=== PATIENT | female | born 1990 | race African-American/Black ===

== ENCOUNTER 2019-10-02 15:57 | Emergency (ER) | payer SELFPAY ==
[~2019-10-02] VITALS: Ht 162.6 cm; Wt 56.7 kg
[2019-10-02 16:33] VITALS: BP 109/61
[2019-10-02] MEDS ORDERED: NAPROXEN 500 MG TABLET PO STA (16:42)
[2019-10-02] MEDS ORDERED: HYDROcodone/APAP 5/325MG 1 TAB TABLET PO ONE (16:45)
--- NOTE | 2019-10-02 17:10 | RAD ---
Exam: Right ankle 3 views INDICATION: Trauma TECHNIQUE: Frontal, lateral and oblique views of the right ankle Comparisons: None FINDINGS: Obliquely oriented fracture through the distal right fibula. There is overlying soft tissue swelling over the lateral malleolus. Mild medial clear space widening is also noted. No other fractures are seen. Soft tissues are otherwise unremarkable. Bone mineralization is normal. IMPRESSION: Obliquely oriented fracture through the distal right fibula with mild medial clear space widening. Electronically signed by: Coleen Tovar MD (10/02/2019 5:07 PM) [facility]
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
[2019-10-02] MEDS ORDERED: HYDR-3164 PO (18:25)
== END 2019-10-02 18:30 | disposition home or self-care (01) ==
LOC: ER 15:57 → EDSEX 15:57 → ER 18:30
DX: S82.831A Other fracture of upper and lower end of right fibula, initial encounter for closed fracture (principal); X50.9XXA Other and unspecified overexertion or strenuous movements or postures, initial encounter; Y93.01 Activity, walking, marching and hiking; Y92.89 Other specified places as the place of occurrence of the external cause; Y99.8 Other external cause status
CPT/HCPCS: 29515; 73610; 99284

== ENCOUNTER 2019-10-18 19:21 | Emergency (ER) | payer SELFPAY ==
[~2019-10-18] VITALS: Ht 162.6 cm; Wt 56.7 kg
[~2019-10-18 19:21] MED LIST: HYDR-3164 PO
[2019-10-18 20:07] VITALS: BP 109/61
--- NOTE | 2019-10-18 23:12 | PHYS DOC ---
Past Medical History Past Medical History: No Pertinent History (CANDACE FARMER APRN) Alcohol Use: None Drug Use: None (CANDACE FARMER APRN) Attending Signature I have participated in the care of this patient and I have reviewed and agree with all pertinent clinical information above including history, exam, and recommendations. (ESME MILLER MD) Adult General Chief Complaint Chief Complaint: ANKLE PROBLEM HPI HPI Patient is a 29 year old female who prefers to use male pronouns as pt is transgender that is accompanied by a friend, who presents to the ER with request for a note to return to work. Pt states he was seen here 2 weeks ago and dx with a fracture of the left ankle. Pt states he was unable to follow up with orthopedics because he did not have $300 to be seen. Pt states he is now able to bear weight on the affected extremity and needs a note saying he can go back to work. Pt states the pain is much better but he continues to have swelling in the affected extremity. He denies any new injury. All other ROS is neg unless otherwise noted in HPI. (CANDACE FARMER APRN) Review of Systems Review of Systems See Above (CANDACE FARMER APRN) Allergies Allergies Allergies Coded Allergies Type Severity Reaction Last Updated Verified No Known Drug Allergies 10/02/19 No (ESME MILLER MD) Physical Exam Physical Exam See Above Constitutional: Well developed, well nourished, no acute distress, non-toxic appearance. [] HENT: Normocephalic, atraumatic, bilateral external ears normal, nose normal. [] Eyes: PERRLA, EOMI, conjunctiva normal, no discharge. [] Neck: Normal range of motion, no stridor. [] Skin: Warm, dry, no erythema, no rash. [] Extremities: LLE: No cyanosis, no clubbing, ROM intact, 2+ edema. [] Neurologic: Alert and oriented X 3, no focal deficits noted. [] Psychologic: Affect normal, judgement normal, mood normal. [] (CANDACE FARMER APRN) Current Patient Data Vital Signs Vital Signs Date Time Temp Pulse Resp B/P (MAP) Pulse Ox O2 Delivery O2 Flow Rate FiO2 10/18/19 20:07 98.6 67 16 109/61 (77) 99 Room Air 98.6 (ESME MILLER MD) EKG EKG [] (CANDACE FARMER APRN) Radiology/Procedures Radiology/Procedures [] (CANDACE FARMER APRN) Course & Med Decision Making Course & Med Decision Making Pertinent Labs and Imaging studies reviewed. (See chart for details) dx: medical screening exam A medical screening exam was performed, patient was found to have no emergent medical condition. The plan of care would've included a repeat x-ray of the fractured extremity and a possible return to work note. However, the patient eloped after talking with registration. [] [] (CANDACE FARMER APRN) Dragon Disclaimer Dragon Disclaimer This electronic medical record was generated, in whole or in part, using a voice recognition dictation system. (CANDACE FARMER APRN) Departure Departure Referrals: NO PCP (PCP) CANDACE FARMER APRN Oct 18, 2019 23:12 ESME MILLER MD Oct 18, 2019 23:52
== END 2019-10-18 20:33 | disposition left against medical advice (07) ==
LOC: ER 19:21
DX: Z02.79 Encounter for issue of other medical certificate (principal)
CPT/HCPCS: 99281

== ENCOUNTER 2020-08-31 20:02 | Emergency (ER) | payer SELFPAY ==
[~2020-08-31] VITALS: Ht 162.6 cm; Wt 56.0 kg
[2020-08-31 20:14] VITALS: BP 150/77
[2020-08-31] MEDS ORDERED: NAPR-514 PO (20:52)
[2020-08-31] MEDS ORDERED: CYCL10TA2 PO (20:52)
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
== END 2020-08-31 22:02 | disposition home or self-care (01) ==
LOC: ER 20:02
DX: S46.819A Strain of other muscles, fascia and tendons at shoulder and upper arm level, unspecified arm, initial encounter (principal); M54.6 Pain in thoracic spine; F17.200 Nicotine dependence, unspecified, uncomplicated; V49.49XA Driver injured in collision with other motor vehicles in traffic accident, initial encounter; Y92.488 Other paved roadways as the place of occurrence of the external cause; Y93.89 Activity, other specified; Y99.8 Other external cause status
CPT/HCPCS: 99283